=== PATIENT | female | born 1995 | race African-American/Black ===

== ENCOUNTER 2021-03-09 21:49 | Inpatient (IN) ==
[2021-03-09] MEDS ORDERED: SODIUM CHLORIDE 0.9% 1,000 ML IV STA (23:29)
[2021-03-09] MEDS ORDERED: ONDANSETRON 4 MG/2 ML VIAL IV STA (23:29)
[2021-03-09] MEDS ORDERED: KETOROLAC 30 MG/1 ML VIAL IV STA (23:29)
[2021-03-09 23:37] LABS: Bacteria,Urine Occasional /HPF (Few); Bilirubin,Urine Negative (Negative); Blood, Urine Negative (Negative); Glucose,Urine (UA) Negative (Negative); Ketones,Urine 20 mg/dL (Negative); Mucus,Urine Occasional /LPF (Occasional); Nitrite,Urine Negative (Negative); Protein,Urine Negative; RBC,Urine 13 /HPF (0-4); Squamous Epithelial Cell,Urine Occasional /HPF (0-10); Urine Appearance Slightly Hazy (Clear); Urine Color Yellow (Yellow); Urine Specific Gravity 1.019 (1.001-1.035)
[2021-03-09] MEDS ORDERED: cefTRIAXone 1,000 MG in SODIUM CHLORIDE 0.9% 100 ML IV STA (23:43)
[2021-03-09 23:51] LABS: Basophils # 0.1 10*3/uL (0.0-0.2); Basophils % 0.2 % (0.0-0.8); Hematocrit 33.9 VOL% (35.7-47.0); Hemoglobin 10.4 GM/DL (12.0-16.0); Immature Granulocytes Absolute 0.33 #; Lymphocytes # 0.6 10*3/uL (1.4-4.0); Lymphocytes % 1.7 % (21.3-54.2); Mean Corpuscular HGB Conc 30.7 GM/DL (32-36); Mean Corpuscular Volume 73.4 FL (87-102); Mean Platelet Volume 9.3 FL (9.6-12.0); Monocytes % 4.7 % (1.7-12.7); Neutrophils % 92.4 % (38.7-73.9); Platelet Count 374 T/CUMM (130-400); Red Blood Count 4.62 MC/CUMM (3.8-5.5); Red Cell Distribution Width 15.2 % (9.3-17.3); White Blood Count 32.3 T/CUMM (4-12)
[2021-03-10 00:13] LABS: Band Neutrophils 1 % (0-10); Lymphocytes 1 % (20-55); Platelet Estimate Increased; Segmented Neutrophils 97 % (50-85); Total Cells Counted 100
[2021-03-10 00:14] LABS: Anisocytosis Slight; Hypochromasia 1+; Microcytosis 2+
[2021-03-10 00:15] LABS: Polychromasia Slight
[2021-03-10 00:31] LABS: Albumin 3.5 G/DL (3.4-5.0); Bilirubin,Total 0.6 MG/DL (0.2-1.0); Calcium 8.7 MG/DL (8.5-10.1); Osmolality,Calculated 271.1 MOS/KG (273-304); Potassium 3.9 MMOL/L (3.5-5.1); Total Protein 8.4 G/DL (6.4-8.2)
[2021-03-10] MEDS ORDERED: GLUCAGON 1 MG VIAL IM PRN (00:47)
[2021-03-10] MEDS ORDERED: MORPHINE 4 MG/1 ML VIAL IV PRN (00:47)
[2021-03-10] MEDS ORDERED: DEXTROSE 50% 25 GM/50 ML VIAL IV PRN (00:47)
[2021-03-10] MEDS ORDERED: hydrALAZINE 20 MG/1 ML VIAL IV PRN (00:47)
[2021-03-10] MEDS ORDERED: ONDANSETRON 4 MG/2 ML VIAL IV PRN (00:47)
[2021-03-10] MEDS ORDERED: diphenhydrAMINE CAP 25 MG CAPSULE PO PRN (00:47)
[2021-03-10] MEDS ORDERED: guaiFENesin/DM ER 600-30 MG TABLET PO PRN (00:47)
[2021-03-10] MEDS ORDERED: ACETAMINOPHEN 325 MG TABLET PO PRN (00:47)
[2021-03-10] MEDS ORDERED: NICOTINE 21 MG/24 HR PATCH TRANSDERM PRN (00:47)
[2021-03-10] MEDS: SODIUM CHLORIDE 0.9% 1,000 ML IV SCH ×2 (02:59→10:14)
[2021-03-10 05:17] LABS: Basophils # 0.1 10*3/uL (0.0-0.2); Basophils % 0.3 % (0.0-0.8); Hematocrit 29.9 VOL% (35.7-47.0); Hemoglobin 9.4 GM/DL (12.0-16.0); Immature Granulocytes % 1.4 %; Immature Granulocytes Absolute 0.37 #; Lymphocytes # 0.7 10*3/uL (1.4-4.0); Lymphocytes % 2.7 % (21.3-54.2); Mean Corpuscular HGB Conc 31.4 GM/DL (32-36); Mean Corpuscular Volume 73.1 FL (87-102); Mean Platelet Volume 9.3 FL (9.6-12.0); Monocytes % 8.3 % (1.7-12.7); Neutrophils % 87.3 % (38.7-73.9); Platelet Count 307 T/CUMM (130-400); Red Blood Count 4.09 MC/CUMM (3.8-5.5); Red Cell Distribution Width 14.9 % (9.3-17.3); White Blood Count 26.6 T/CUMM (4-12)
[2021-03-10 05:43] LABS: Calcium 7.9 MG/DL (8.5-10.1); Osmolality,Calculated 277.5 MOS/KG (273-304); Potassium 3.6 MMOL/L (3.5-5.1)
[2021-03-10 05:45] LABS: Band Neutrophils 6 % (0-10); Lymphocytes 3 % (20-55); Platelet Estimate Adequate; Segmented Neutrophils 86 % (50-85); Total Cells Counted 100
[2021-03-10 05:46] LABS: Hypochromasia 1+; Microcytosis 1+
[2021-03-10] MEDS ORDERED: LIDOCAINE 2% 5 ML VIAL ONE (07:34)
[2021-03-10] MEDS ORDERED: fentaNYL 100 MCG/2 ML VIAL ONE (07:34)
[2021-03-10] MEDS ORDERED: propofoL 200 MG/20 ML VIAL IV ONE (07:34)
[2021-03-10] MEDS ORDERED: MIDAZOLAM 2 MG/2 ML VIAL ONE (07:34)
[2021-03-10] MEDS ORDERED: SUCCINYLCHOLINE 200 MG/10 ML VIAL ONE (08:08)
[2021-03-10] MEDS ORDERED: FAMOTIDINE 20 MG/2 ML VIAL IV ONE (08:14)
[2021-03-10] MEDS ORDERED: PHENYLEPHRINE 1 MG/10 ML SYRINGE IV ONE (08:34)
[2021-03-10] MEDS ORDERED: ROCURONIUM 50 MG/5 ML VIAL IV ONE (08:34)
[2021-03-10] MEDS ORDERED: SEVOFLURANE 1 UNIT/15 MINUTE INH ONE ×3 (08:34→09:13)
[2021-03-10] MEDS ORDERED: ONDANSETRON 4 MG/2 ML VIAL ONE (08:36)
[2021-03-10] MEDS ORDERED: DEXAMETHASONE 4 MG/1 ML VIAL ONE (08:36)
[2021-03-10] MEDS ORDERED: GENTAMICIN 80 MG/2 ML VIAL ONE (08:45)
[2021-03-10] MEDS: PANTOPRAZOLE 40 MG TABLET PO SCH (10:14)
[2021-03-10] MEDS ORDERED: cefTRIAXone 1,000 MG in SODIUM CHLORIDE 0.9% 100 ML IV SCH (21:00)
[2021-03-11 05:14] LABS: Basophils # 0.1 10*3/uL (0.0-0.2); Basophils % 0.2 % (0.0-0.8); Hematocrit 30.6 VOL% (35.7-47.0); Hemoglobin 9.6 GM/DL (12.0-16.0); Immature Granulocytes Absolute 0.29 #; Lymphocytes # 1.1 10*3/uL (1.4-4.0); Lymphocytes % 3.7 % (21.3-54.2); Mean Corpuscular HGB Conc 31.4 GM/DL (32-36); Mean Platelet Volume 9.9 FL (9.6-12.0); Monocytes % 6.7 % (1.7-12.7); Neutrophils % 88.4 % (38.7-73.9); Platelet Count 310 T/CUMM (130-400); Red Blood Count 4.19 MC/CUMM (3.8-5.5); Red Cell Distribution Width 15.4 % (9.3-17.3); White Blood Count 28.6 T/CUMM (4-12)
[2021-03-11 05:32] LABS: Calcium 8.1 MG/DL (8.5-10.1); Osmolality,Calculated 275.7 MOS/KG (273-304); Potassium 3.8 MMOL/L (3.5-5.1)
[2021-03-11 06:46] LABS: Anisocytosis 1+; Band Neutrophils 30 % (0-10); Lymphocytes 5 % (20-55); Metamyelocytes 1 %; Platelet Estimate Normal; Segmented Neutrophils 57 % (50-85); Total Cells Counted 100
[2021-03-11 06:47] LABS: Burr Cells 1+; Poikilocytosis Slight
[2021-03-11] MEDS: SODIUM CHLORIDE 0.9% 1,000 ML IV SCH ×3 (08:54→16:58)
[2021-03-11] MEDS: PANTOPRAZOLE 40 MG TABLET PO SCH (10:25)
[2021-03-11] MEDS ORDERED: cefTRIAXone 2,000 MG in SODIUM CHLORIDE 0.9% 100 ML IV SCH ×2 (16:20→18:00)
[2021-03-12 05:41] LABS: Basophils # 0.1 10*3/uL (0.0-0.2); Basophils % 0.4 % (0.0-0.8); Eosinophils % 0.1 % (0.00-10.9); Hematocrit 29.9 VOL% (35.7-47.0); Hemoglobin 9.2 GM/DL (12.0-16.0); Immature Granulocytes % 0.8 %; Immature Granulocytes Absolute 0.17 #; Lymphocytes # 1.6 10*3/uL (1.4-4.0); Lymphocytes % 7.9 % (21.3-54.2); Mean Corpuscular HGB Conc 30.8 GM/DL (32-36); Mean Corpuscular Volume 72.4 FL (87-102); Mean Platelet Volume 9.2 FL (9.6-12.0); Monocytes % 8.5 % (1.7-12.7); Neutrophils % 82.3 % (38.7-73.9); Platelet Count 317 T/CUMM (130-400); Red Blood Count 4.13 MC/CUMM (3.8-5.5); White Blood Count 20.3 T/CUMM (4-12)
[2021-03-12 06:01] LABS: Calcium 8.2 MG/DL (8.5-10.1); Osmolality,Calculated 274.7 MOS/KG (273-304); Potassium 3.6 MMOL/L (3.5-5.1)
[2021-03-12 06:03] LABS: Eosinophils 1 % (0-10); Hypochromasia 1+; Lymphocytes 8 % (20-55); Microcytosis 1+; Platelet Estimate Adequate; Segmented Neutrophils 81 % (50-85); Total Cells Counted 100
[2021-03-12] MEDS: PANTOPRAZOLE 40 MG TABLET PO SCH (09:45)
[2021-03-12 12:31] VITALS: BP 105/61
[2021-03-12] MEDS ORDERED: CEFUROXIME 500 MG TABLET PO SCH (21:00)
== END 2021-03-12 15:05 | disposition home or self-care (01) | DRG 854 ==
LOC: N.ED 21:49 → N.EDINP 03-10 00:47 → N.3E 03-10 02:27
PROVIDERS: ADMIT Hospitalist; ATTEND Hospitalist